=== PATIENT | male | born 1945 | race Caucasian/White ===

== ENCOUNTER → 2018-06-29 | Outpatient (CLI) | payer OTHER ==
--- NOTE | 2018-06-29 14:52 | KCIC ---
MRI of the lumbar spine without contrast 06/29/2018 CLINICAL HISTORY: Low back pain which radiates down the right leg. TECHNIQUE: Unenhanced T1-weighted and T2-weighted sagittal and axial and inversion recovery sagittal images of the lumbar spine were obtained. FINDINGS: Minimal S-shaped curvature of the thoracolumbar spine is seen. Degenerative signal changes are seen involving all of the disks of the lumbar spine. Degenerative signal changes are seen within the marrow surrounding these discs. Hemangiomas are seen scattered throughout the lumbar and sacral vertebral bodies. These measure 3 mm to 1.5 cm in size. An old compression fracture of the L1 vertebral body is seen. No retropulsion of bone fragments into the central spinal canal is seen. No acute compression fracture of the lumbar vertebrae seen. At the L1-2 disc space there is a mild generalized disc bulge. Degenerative changes are seen involving the facet joints bilaterally. These findings do not result in significant central spinal canal or neural foraminal stenosis. At the L2-3 disc space there is a moderate generalized disc bulge. Superimposed on this disc bulge is a central/right paracentral focal disc protrusion. This measures 4 mm in AP diameter. Degenerative changes are seen involving the facet joints bilaterally. There is moderate ligamentum flavum hypertrophy bilaterally. There are small facet joint effusions. These findings when combined result in moderate central spinal canal stenosis. Mild bilateral neural foraminal stenosis is seen. At the L3-4 disc space there is a moderate generalized disc bulge. Superimposed on this disc bulge is a left paracentral focal disc herniation. This measures 7 mm in AP diameter. Degenerative changes are seen involving the facet joints bilaterally. There is moderate ligamentum flavum hypertrophy bilaterally. Small facet joint effusions are seen. There is prominence of the posterior epidural fat. These findings when combined result in moderate to severe left greater than right central spinal canal stenosis. Mild bilateral neural foraminal stenosis is seen. At the L4-5 disc space there is a moderate generalized disc bulge. Superimposed on this disc bulge is a central/right paracentral focal disc protrusion. This measures 4 mm in AP diameter. Degenerative changes are seen involving the facet joints bilaterally. There is moderate ligamentum flavum hypertrophy bilaterally. There is prominence of the posterior epidural fat. Small facet joint effusions are seen. These findings when combined result in moderate to severe right greater than left central spinal canal stenosis. No neural foraminal stenosis is seen. At the L5-S1 disc space there is a mild generalized disc bulge. Degenerative changes are seen involving the facet joints bilaterally. These findings do not result in significant central spinal canal or neural foraminal stenosis. IMPRESSION: The changes of degenerative disc disease are seen involving the lumbar spine. These findings result in moderate central spinal canal stenosis at L2-3, moderate to severe left greater than right central spinal canal stenosis at L3-4 and moderate to severe right greater than left central spinal canal stenosis at L4-5. Mild bilateral neural foraminal stenosis is seen at L3-4. Electronically signed by: Peter Roland MD (06/29/2018 2:49 PM) [facility]-[id number]
== END | disposition home or self-care (01) ==
LOC: KCIC MRI 12:56
PROVIDERS: ATTEND Family Medicine
DX: M51.36 Other intervertebral disc degeneration, lumbar region (principal); M48.061 Spinal stenosis, lumbar region without neurogenic claudication; M51.26 Other intervertebral disc displacement, lumbar region
CPT/HCPCS: 72148

== ENCOUNTER → 2021-03-25 | Outpatient (CLI) | payer MEDICARE, OTHER ==
--- NOTE | 2021-03-25 14:17 | KCIC ---
MRI of the brain without contrast 03/25/2021 Clinical History: Bilateral upper extremity tremor. Technique: Unenhanced T1-weighted sagittal and axial, T2-weighted axial and coronal and FLAIR, suscep tibility weighted and diffusion-weighted axial images of the brain were obtained. Findings: There is generalized parenchymal atrophy. Patchy, confluent and multiple small focal areas of abnormally increased signal intensity are seen within the periventricular and subcortical white ma tter of both cerebral hemispheres on the FLAIR and T2-weighted images consistent most likely with are as of relatively mild small vessel ischemic disease. No acute parenchymal abnormality is seen. No ext ra-axial fluid collection is noted. There is no MRI evidence of acute ischemia/infarction. Mild mucosal thickening is seen scattered throughout the paranasal sinuses. There are small bilateral mastoid effusions. Normal flow voids are seen within the major vascular structures surrounding the b rain parenchyma. IMPRESSION: No acute parenchymal abnormality is seen. Electronically signed by: Peter Roland MD (03/25/2021 2:14 PM) [id number]
== END ==
LOC: KCIC MRI 10:59
PROVIDERS: ATTEND Nurse Practitioner Family
DX: G20 Parkinson's disease (principal)
CPT/HCPCS: 70551

== ENCOUNTER → 2021-10-22 | Day surgery (SDC) | payer MEDICARE ==
[~2021-10-22] VITALS: Ht 190.5 cm; Wt 129.5 kg
[~2021-10-22] MED LIST: ASCO100T4 PO; ASPI-630 PO; CARB1TAB22 PO; CYAN25008 PO; FURO20TA3 PO; IV RINGERS,LACTATED 1000ML 1,000 ML IV ONE; METF10007 PO; POTA10TA12 PO; PROPOFOL 10 MG/ML (20ML) VIAL. IV ONE
[2021-10-22 06:28] VITALS: BP 111/67
[2021-10-22 07:56] VITALS: BP 104/60
--- NOTE | 2021-10-22 11:38 | HP ---
DATE OF SERVICE: 10/22/2021 ADMIT DATE: 10/22/2021 REASON FOR ADMISSION: Anemia. HISTORY OF PRESENT ILLNESS: A 76-year-old male with past medical history significant for GERD, history of diabetes, arthritis, hypertension, Parkinson's disease, is seen for anemia with the hemoglobin 11.4. Occasional constipation is noted. Weight and appetite are stable. He did have a colonoscopy 20 years previously, which was unrevealing. No visible bleeding is noted. There is no upper tract symptoms and is here for interval colonoscopy. PAST MEDICAL HISTORY: Anemia, GERD, diabetes, hypertension, Parkinson's disease. ALLERGIES: CODEINE. MEDICATIONS: Include vitamin C, aspirin, carbidopa/levodopa, vitamin B12, furosemide, metformin, potassium chloride. FAMILY HISTORY: Significant for breast cancer with his mother, [place] with his father and brother. SOCIAL HISTORY: He is a nondrinker, nonsmoker. PAST SURGICAL HISTORY: Joint replacement, vasectomy. REVIEW OF SYSTEMS: Per records. PHYSICAL EXAMINATION: GENERAL: Reveals a well-nourished, well-developed male who is alert and cooperative, in no acute distress. VITAL SIGNS: Temperature 97.6, pulse 72, respiratory rate 18. LUNGS: Clear. CARDIOVASCULAR: Reveals an S1, S2, without S3, S4 or appreciable murmur. ABDOMEN: Reveals a soft abdomen, normal bowel sounds, without appreciable hepatosplenomegaly. EXTREMITIES: Reveals no cyanosis, clubbing or edema. IMPRESSION: Anemia, etiology is to be determined. Colonic polyps, AVMs, cancer, IBD, differential; therefore, recommend a colonoscopy. Risks and benefits have been previously discussed. The patient is willing to proceed at this time. RENAE DR: Dejuan TID: [id number]
== END | disposition home or self-care (01) ==
LOC: ENDOS 06:00
PROVIDERS: ATTEND Internal Medicine Gastroenterology
DX: D50.9 Iron deficiency anemia, unspecified (principal); K64.0 First degree hemorrhoids; K57.30 Diverticulosis of large intestine without perforation or abscess without bleeding; K63.89 Other specified diseases of intestine; K21.9 Gastro-esophageal reflux disease without esophagitis; I10 Essential (primary) hypertension; E11.9 Type 2 diabetes mellitus without complications; J45.909 Unspecified asthma, uncomplicated; M19.90 Unspecified osteoarthritis, unspecified site; Z79.82 Long term (current) use of aspirin; Z79.84 Long term (current) use of oral hypoglycemic drugs; Z79.899 Other long term (current) drug therapy; Z86.010 Personal history of colon polyps; Z98.890 Other specified postprocedural states; Z82.49 Family history of ischemic heart disease and other diseases of the circulatory system; Z80.3 Family history of malignant neoplasm of breast; Z88.5 Allergy status to narcotic agent
CPT/HCPCS: 45378; J2704

== ENCOUNTER 2022-03-27 12:16 | Inpatient (IN) | payer MEDICARE ==
[~2022-03-27] VITALS: Ht 190.5 cm; Wt 112.8 kg
[~2022-03-27 12:16] MED LIST changes: -IV RINGERS,LACTATED 1000ML 1,000 ML IV ONE; -PROPOFOL 10 MG/ML (20ML) VIAL. IV ONE
[2022-03-27] MEDS ORDERED: ASPIRIN 325 MG TABLET PO ONE (13:00)
[2022-03-27 13:11] LABS: BASO # 0.1 x10^3/uL (0.0-0.2); BASO % 1 % (0-3); EOS # 0.1 x10^3/uL (0.0-0.7); EOS % 1 % (0-3); HEMATOCRIT 27.7 % (39.0-53.0); HEMOGLOBIN 9.2 g/dL (13.0-17.5); LYMPH # 1.5 x10^3/uL (1.0-4.8); LYMPH % 13 % (24-48); MEAN CORPUSCULAR HEMOGLOBIN 31 pg (25-35); MEAN CORPUSCULAR HGB CONC 33 g/dL (31-37); MEAN CORPUSCULAR VOLUME 94 fL (79-100); MONO # 0.9 x10^3/uL (0.0-1.1); MONO % 8 % (0-9); NEUT # 9.1 x10^3/uL (1.8-7.7); NEUT % 78 % (31-73); PLATELET COUNT 274 x10^3/uL (140-400); RED BLOOD COUNT 2.95 x10^6/uL (4.30-5.70); RED CELL DISTRIBUTION WIDTH 18.2 % (11.5-14.5); WHITE BLOOD COUNT 11.6 x10^3/uL (4.0-11.0)
--- NOTE | 2022-03-27 13:17 | RAD ---
EXAM: Chest, single view. HISTORY: Short of breath. COMPARISON: 02/17/2006. FINDINGS: A frontal view of the chest is obtained. There is stable right hilar prominence. There is d iffuse increased interstitial opacity. There is no consolidation, pleural effusion or pneumothorax. T he heart is normal in size. IMPRESSION: 1. Stable right hilar prominence likely due to prominent pulmonary vascular shadows. 2. Stable chronic appearing diffuse increased interstitial opacity. No consolidated infiltrate is see n. Electronically signed by: Brenda Roberts MD (03/27/2022 1:14 PM) [id number]
[2022-03-27 13:25] LABS: ANION GAP 17 (6-14); BLOOD UREA NITROGEN 47 mg/dL (8-26); BUN/CREATININE RATIO 13 (6-20); CALCIUM 9.4 mg/dL (8.5-10.1); CARBON DIOXIDE 18 mmol/L (21-32); CHLORIDE 106 mmol/L (98-107); CREATININE 3.7 mg/dL (0.7-1.3); GFR 16.1; GLUCOSE 133 mg/dL (70-99); POTASSIUM 4.4 mmol/L (3.5-5.1); SODIUM 141 mmol/L (136-145)
[2022-03-27 13:30] LABS: ALBUMIN 3.3 g/dL (3.4-5.0); ALBUMIN/GLOBULIN RATIO 0.7 (1.0-1.7); ALK PHOS 99 U/L (46-116); ALT (SGPT) < 6 U/L (16-63); AST (SGOT) 13 U/L (15-37); LIPASE 377 U/L (73-393); MAGNESIUM 2.1 mg/dL (1.8-2.4); TOTAL BILIRUBIN 0.5 mg/dL (0.2-1.0)
[2022-03-27 14:28] LABS: BACTERIA,URINE MOD /HPF (0-FEW); RBC,URINE 0 /HPF (0-2); WBC,URINE TNTC /HPF (0-4)
[2022-03-27] MEDS: cefTRIAXone IV Push 1 GM VIAL. IVP SCH (14:54)
--- NOTE | 2022-03-27 14:55 | RAD ---
EXAMINATION: CT ABDOMEN+PELVIS WO. Technique: Axial images with coronal and sagittal reconstructions are performed of abdomen and pelvis without contrast. One or more of the following radiation dose reduction techniques was used: automated exposure control , adjustment of mA and/or KV according to patient size, and/or utilization of iterative reconstructio n technique. HISTORY: 76 years Male urinary retention. COMPARISON: None. FINDINGS: There is a minimal atelectasis or scarring in the periphery of the lung bases. The liver, pancreas and the the adrenal glands appear unremarkable. There is a fluid level in the gal lbladder with the high density may relate to prior contrast administration. The gallbladder is slight ly distended with no gallbladder wall thickening. No obvious stone. There is suggestion of the stent near the martha hepatis possibly within the hepatic artery. The spleen is not enlarged. There are calc ified granulomas seen. The kidneys demonstrate bilateral moderate to severe hydronephrosis worse on the left side. There is dilatation of the urinary bladder was significant the irregular wall thickening seen, worse anteriorl y. There is a Leyva's catheter in place. Nonobstructive the stone measuring 9 mm seen in the lower po le of the right kidney. The abdominal aorta is normal in caliber. No para-aortic significant enlarged lymph node is seen. The re is no bowel obstruction. The appendix is normal. There is a moderate amounts of fecal material is seen in the colon and rectum. There is a small fat-containing umbilical hernia. The osseous structures demonstrate the likely chronic 50 percent compression fracture of the L1 verte bral body. There is associated prominent degenerative changes in the lumbar spine. IMPRESSION: Abnormal significant thickening of the urinary bladder wall could relate to severe cystitis or underl carolina neoplasm. This is associated with mild dilatation of the urinary bladder despite presence of a F oley's catheter. There is bilateral hydroureteronephrosis as well. Urology evaluation is recommended. Electronically signed by: Alphonse Davis MD (03/27/2022 2:53 PM) [id number]
--- NOTE | 2022-03-27 15:03 | PHYS DOC ---
Past Medical History Past Surgical History: No Surgical History Smoking Status: Never Smoker Alcohol Use: None General Adult EDM: Chief Complaint: ABNORMAL LABS HPI: HPI: Patient is a 76 year old male who presents with acute renal failure, patient was sent in by primary care physician. Patient states that he does not feel well, he feels fatigued, he feels slightly short of breath as well. He states he is never felt like this before. He states he has felt this way for about 6 months now. When questioned further, he has not been able to urinate very well, he states that he urinates very little but he goes very frequently. He does not take medication for this. Otherwise patient does not have any other complaints. Review of Systems: Review of Systems: Constitutional: Denies fever or chills. [] Eyes: Denies change in visual acuity. [] HENT: Denies nasal congestion or sore throat. [] Respiratory: Denies cough, positive shortness of breath. [] Cardiovascular: Denies chest pain or edema. [] GI: Denies abdominal pain, nausea, vomiting, bloody stools or diarrhea. [] : Denies dysuria. [] Musculoskeletal: Denies back pain or joint pain. [] Integument: Denies rash. [] Neurologic: Denies headache, focal weakness or sensory changes. [] Endocrine: + polyuria no polydipsia. [] Lymphatic: Denies swollen glands. [] Psychiatric: Denies depression or anxiety. [] Heart Score: C/O Chest Pain: No Risk Factors: Risk Factors: DM, Current or recent (<one month) smoker, HTN, HLP, family history of CAD, obesity. Risk Scores: Score 0 - 3: 2.5% MACE over next 6 weeks - Discharge Home Score 4 - 6: 20.3% MACE over next 6 weeks - Admit for Clinical Observation Score 7 - 10: 72.7% MACE over next 6 weeks - Early Invasive Strategies Current Medications: Current Medications Medications (Trade) Dose Ordered Sig/Victor Hugo Start Time Stop Time Status Last Admin Dose Admin Aspirin (Aspirin Chewable) 81 mg DAILY 03/28/22 09:00 Aspirin (Prudencio Aspirin) 325 mg 1X ONCE 03/27/22 13:00 03/27/22 13:04 DC 03/27/22 13:22 325 MG Carbidopa/Levodopa (Sinemet 25/100) 2 tab BID 03/27/22 21:00 UNV Ceftriaxone Sodium (Rocephin) 1 gm Q24H 03/27/22 15:00 Furosemide (Lasix) 20 mg DAILY 03/28/22 09:00 Non-Formulary Medication (Ascorbic Acid (Vitamin C)) 1 tab DAILY 03/28/22 09:00 UNV Non-Formulary Medication (Cyanocobalamin (Vitamin B-12) (Vitamin B12)) 1 tab DAILY 03/28/22 09:00 UNV Non-Formulary Medication (Metformin Hcl ) 1,000 mg [id number] 03/28/22 08:00 UNV Potassium Chloride (Klor-Con) 10 meq DAILY 03/28/22 09:00 UNV Allergies: Allergies: Allergies Coded Allergies Type Severity Reaction Last Updated Verified codeine Allergy Severe Nausea 03/27/22 Yes Physical Exam: PE: Constitutional: Well developed, well nourished, no acute distress, non-toxic appearance. [] HENT: Normocephalic, atraumatic, bilateral external ears normal, oropharynx moist, no oral exudates, nose normal. [] Eyes: PERRLA, EOMI, conjunctiva normal, no discharge. [] Neck: Normal range of motion, no tenderness, supple, no stridor. [] Cardiovascular:Heart rate regular rhythm, no murmur [] Lungs & Thorax: Bilateral breath sounds clear to auscultation [] Abdomen: Bowel sounds normal, soft, mild suprapubic tenderness, no masses, no pulsatile masses. [] Skin: Warm, dry, no erythema, no rash. [] Back: No tenderness, no CVA tenderness. [] Extremities: No tenderness, no cyanosis, no clubbing, ROM intact, no edema. [] Neurologic: Alert and oriented X 3, normal motor function, normal sensory function, no focal deficits noted. [] Psychologic: Affect normal, judgement normal, mood normal. [] Current Patient Data: Labs: Laboratory Tests Test 03/27/22 12:50 03/27/22 14:05 White Blood Count 11.6 x10^3/uL (4.0-11.0) H Red Blood Count 2.95 x10^6/uL (4.30-5.70) L Hemoglobin 9.2 g/dL (13.0-17.5) L Hematocrit 27.7 % (39.0-53.0) L Mean Corpuscular Volume 94 fL (79-100) Mean Corpuscular Hemoglobin 31 pg (25-35) Mean Corpuscular Hemoglobin Concent 33 g/dL (31-37) Red Cell Distribution Width 18.2 % (11.5-14.5) H Platelet Count 274 x10^3/uL (140-400) Neutrophils (%) (Auto) 78 % (31-73) H Lymphocytes (%) (Auto) 13 % (24-48) L Monocytes (%) (Auto) 8 % (0-9) Eosinophils (%) (Auto) 1 % (0-3) Basophils (%) (Auto) 1 % (0-3) Neutrophils # (Auto) 9.1 x10^3/uL (1.8-7.7) H Lymphocytes # (Auto) 1.5 x10^3/uL (1.0-4.8) Monocytes # (Auto) 0.9 x10^3/uL (0.0-1.1) Eosinophils # (Auto) 0.1 x10^3/uL (0.0-0.7) Basophils # (Auto) 0.1 x10^3/uL (0.0-0.2) Sodium Level 141 mmol/L (136-145) Potassium Level 4.4 mmol/L (3.5-5.1) Chloride Level 106 mmol/L (98-107) Carbon Dioxide Level 18 mmol/L (21-32) L Anion Gap 17 (6-14) H Blood Urea Nitrogen 47 mg/dL (8-26) H Creatinine 3.7 mg/dL (0.7-1.3) H Estimated GFR (Cockcroft-Gault) 16.1 BUN/Creatinine Ratio 13 (6-20) Glucose Level 133 mg/dL (70-99) H Calcium Level 9.4 mg/dL (8.5-10.1) Magnesium Level 2.1 mg/dL (1.8-2.4) Total Bilirubin 0.5 mg/dL (0.2-1.0) Aspartate Amino Transferase (AST) 13 U/L (15-37) L Alanine Aminotransferase (ALT) < 6 U/L (16-63) L Alkaline Phosphatase 99 U/L (46-116) Troponin I High Sensitivity 10 ng/L (4-75) Total Protein 8.0 g/dL (6.4-8.2) Albumin 3.3 g/dL (3.4-5.0) L Albumin/Globulin Ratio 0.7 (1.0-1.7) L Lipase 377 U/L (73-393) Thyroid Stimulating Hormone (TSH) 1.199 uIU/mL (0.358-3.74) Urine Collection Type Unknown Urine Color (Auto) Light orange Urine Turbidity Turbid Urine pH (Auto) 5.5 (<5.0-8.0) Urine Specific [place] 1.009 (1.000-1.030) Urine Protein (Auto) 50 mg/dL (Negative) Urine Glucose (Auto)(UA) Negative mg/dL (Negative) Urine Ketones (Auto) Negative mg/dL (Negative) Urine Blood (Auto) Moderate (Negative) Urine Nitrite (Auto) Negative (Negative) Urine Bilirubin (Auto) Negative (Negative) Urine Urobilinogen (Auto) Normal mg/dL (Normal) Urine Leukocyte Esterase (Auto) Large (Negative) Urine RBC 0 /HPF (0-2) Urine WBC Tntc /HPF (0-4) Urine Bacteria Mod /HPF (0-FEW) Laboratory Tests 03/27/22 12:50 Laboratory Tests 03/27/22 12:50 Vital Signs: Vital Signs Date Time Temp Pulse Resp B/P (MAP) Pulse Ox O2 Delivery O2 Flow Rate FiO2 03/27/22 12:35 98.2 73 16 102/64 (77) 96 Room Air 98.2 EKG: EKG: Normal sinus rhythm, right bundle branch block, RVH Radiology/Procedures: Radiology/Procedures: [] Leyva placed with 4200 mL output Impression: PATIENT: PAOLA ROMERO ACCOUNT: [id number] : 1945 LOCATION: ER AGE: 76 SEX: M EXAM STATUS: REG ER ORD. PHYSICIAN: MILAGRO DUQUE MD REASON: urinary retention PROCEDURE: CT ABDOMEN PELVIS WO CONTRAST EXAMINATION: CT ABDOMEN+PELVIS WO. Technique: Axial images with coronal and sagittal reconstructions are performed of abdomen and pelvis without contrast. One or more of the following radiation dose reduction techniques was used: automated exposure control, adjustment of mA and/or KV according to patient size, and/or utilization of iterative reconstruction technique. HISTORY: 76 years Male urinary retention. COMPARISON: None. FINDINGS: There is a minimal atelectasis or scarring in the periphery of the lung bases. The liver, pancreas and the the adrenal glands appear unremarkable. There is a fluid level in the gallbladder with the high density may relate to prior contrast administration. The gallbladder is slightly distended with no g allbladder wall thickening. No obvious stone. There is suggestion of the stent near the martha hepatis possibly within the hepatic artery. The spleen is not enlarged. There are calcified granulomas seen. The kidneys demonstrate bilateral moderate to severe hydronephrosis worse on the left side. There is dilatation of the urinary bladder was significant the irregular wall thickening seen, worse anteriorly. There is a Leyva's catheter in place. Nonobstructive the stone measuring 9 mm seen in the lower pole of the right kidney. The abdominal aorta is normal in caliber. No para-aortic significant enlarged lymph node is seen. There is no bowel obstruction. The appendix is normal. There is a moderate amounts of fecal material is seen in the colon and rectum. There is a small fat-containing umbilical hernia. The osseous structures demonstrate the likely chronic 50 percent compression fracture of the L1 vertebral body. There is associated prominent degenerative changes in the lumbar spine. IMPRESSION: Abnormal significant thickening of the urinary bladder wall could relate to severe cystitis or underlying neoplasm. This is associated with mild dilatation of the urinary bladder despite presence of a Leyva's catheter. There is bilateral hydroureteronephrosis as well. Urology evaluation is recommended. Electronically signed by: Alphonse Davis MD (03/27/2022 2:53 PM) [id number] Course & Med Decision Making: Course & Med Decision Making Pertinent Labs and Imaging studies reviewed. (See chart for details) 76-year-old male seen and examined by myself, sent in for acute renal failure. Likely secondary to acute urinary retention secondary to prostatic hypertrophy. Patient with GFR of 16 here, leukocytosis, urinalysis with possible UTI. Patient with acute renal failure with acute urinary retention, postobstructive uropathy. Patient admitted to the service of Dr. Butler who accepts the patient. Urology consult is recommended. Samm Disclaimer: Samm Disclaimer: This electronic medical record was generated, in whole or in part, using a voice recognition dictation system. Departure Departure Referrals: THELMA SEGURA MD (PCP) MILAGRO DUQUE MD March 27, 2022 15:03
--- NOTE | 2022-03-27 15:34 | HP ---
DATE OF SERVICE: 03/27/2022 ADMIT DATE: 03/27/2022 CHIEF COMPLAINT: Abdominal pain, dysuria. HISTORY OF PRESENT ILLNESS: The patient is a pleasant 76-year-old male who presented with the above chief complaints. We did a straight cath and got out 2 liters of urine. It appears he probably has a prostatic issues. He has got obstructive uropathy. His BUN is 47, creatinine 3.7. We are going to admit the patient and consult Urology and Nephrology. PAST MEDICAL HISTORY: Probable BPH. He states he saw a urologist in the past, does not remember their names; edema; diabetes. ALLERGIES: CODEINE. FAMILY HISTORY: Diabetes. SOCIAL HISTORY: Does not drink, smoke or take drugs. He is . MEDICATIONS: Reviewed. He is on aspirin, Sinemet, Klor-Con, Lasix, metformin, B12 and vitamin C. REVIEW OF SYSTEMS: GENERAL: No history of weight change, weakness or fevers. SKIN: No bruising, hair changes or rashes. EYES: No blurred, double or loss of vision. NOSE AND THROAT: No history of nosebleeds, hoarseness or sore throat. HEART: No history of palpitations, chest pain or shortness of breath on exertion. LUNGS: Denies cough, hemoptysis, wheezing or shortness of breath. GASTROINTESTINAL: He complains abdominal pain. GENITOURINARY: He complains of dysuria and difficulty voiding. NEUROLOGIC: Denies history of numbness, tingling, tremor or weakness. PSYCHIATRIC: No history of panic, anxiety or depression. ENDOCRINE: No history of heat or cold intolerance, polyuria or polydipsia. EXTREMITIES: Denies muscle weakness, joint pain, pain on walking or stiffness. PHYSICAL EXAMINATION: VITALS: Within normal limits and are stable. GENERAL: No apparent distress. Alert and oriented. HEENT: Normal cephalic atraumatic, external auditory canals are patent EYES: Extraocular muscles are intact, pupils are equally round and reactive to light and accommodation MUSKULOSKELETAL: Well developed, well nourished, good range of motion ENDOCRINE: No thyromegaly was palpated LYMPHATICS: No cervical chain or axillary nodes were noted HEMATOPOIETIC: No bruising NECK: Supple, no JVD, no thyromegaly was noted. LUNGS: Clear to auscultation in all lung [place] without rhonchi or wheezing. HEART: RRR, S1, S2 present. Peripheral pulses intact, no obvious murmurs were noted. ABDOMEN: Soft, nontender. Positive bowel sounds no organomegaly, normal bowel sounds. EXTREMITIES: Without any cyanosis, clubbing, or edema. Pedal pulses intact, Homans sign is negative. NEUROLOGIC: Normal speech, normal tone. A and O x 3, moves all extremities, no obvious focal deficits. PSYCHIATRIC: Normal affect, normal mood. Stable. SKIN: No ulcerations or rashes, good skin turgor, no jaundice. VASCULAR: Good capillary refill, neurovascular bundle appears to be intact. LABORATORY DATA: BUN is 47, creatinine 3.7. Glucose is 133. White count 11.6, hemoglobin 9.2, platelets 274. Urinalysis, moderate blood, large amount of leukocyte esterase, too numerous to count white cells. ASSESSMENT AND PLAN: Obstructive uropathy leukocytosis, urinary tract infection, probable BPH, azotemia, renal failure. The patient will be admitted. We will keep the Leyva to bedside drainage. Consult Urology, consult Nephrology. IV antibiotics, home meds, DVT prophylaxis, full code. JUNO/DEMETRIA DR: JUNO/cale TID: [id number]
[2022-03-27 16:58] VITALS: BP 134/81
[2022-03-27] MEDS ORDERED: MULT-245 PO (17:33)
[2022-03-27] MEDS: IV NORMAL SALINE 1000ML BAG 1,000 ML IV SCH (18:00)
[2022-03-27 19:00] VITALS: BP 119/78
[2022-03-27] MEDS: CARBIDOPA/LEVODOPA 25/100MG TABLET PO SCH (21:31)
[2022-03-27 23:00] VITALS: BP 110/65
[2022-03-28 02:58] LABS: ALBUMIN 2.8 g/dL (3.4-5.0); ALBUMIN/GLOBULIN RATIO 0.7 (1.0-1.7); ALK PHOS 85 U/L (46-116); ANION GAP 11 (6-14); AST (SGOT) 11 U/L (15-37); BLOOD UREA NITROGEN 44 mg/dL (8-26); BUN/CREATININE RATIO 15 (6-20); CALCIUM 8.6 mg/dL (8.5-10.1); CARBON DIOXIDE 22 mmol/L (21-32); CHLORIDE 109 mmol/L (98-107); CREATININE 2.9 mg/dL (0.7-1.3); GFR 21.4; GLUCOSE 106 mg/dL (70-99); PHOSPHORUS 4.2 mg/dL (2.6-4.7); POTASSIUM 4.6 mmol/L (3.5-5.1); SODIUM 142 mmol/L (136-145); TOTAL BILIRUBIN 0.3 mg/dL (0.2-1.0); TOTAL PROTEIN 6.7 g/dL (6.4-8.2)
[2022-03-28 03:00] VITALS: BP 113/72
[2022-03-28 03:05] LABS: ALT (SGPT) < 6 U/L (16-63)
[2022-03-28] MEDS: IV NORMAL SALINE 1000ML BAG 1,000 ML IV SCH ×2 (04:01→14:00)
[2022-03-28 07:00] VITALS: BP 131/71
[2022-03-28] MEDS ORDERED: FUROSEMIDE 20 MG TABLET PO SCH (09:00)
[2022-03-28] MEDS ORDERED: POTASSIUM CHLORIDE 10 MEQ TABLET.ER. PO SCH (09:00)
[2022-03-28] MEDS ORDERED: CYANOCOBALAMIN (VITAMIN B-12) 1,000 MCG TABLET. PO SCH (09:00)
[2022-03-28] MEDS ORDERED: ASCORBIC ACID 500 MG TABLET PO SCH (09:00)
[2022-03-28] MEDS: ASPIRIN CHEWABLE 81 MG TABLET. PO SCH (09:13)
[2022-03-28] MEDS: CARBIDOPA/LEVODOPA 25/100MG TABLET PO SCH ×2 (09:16→20:32)
--- NOTE | 2022-03-28 10:44 | PDOC2 ---
CONSULT Date of Consult Date of Consult DATE: 03/28/22 TIME: 10:38 Reason for Consult Reason for Consult: XAVIER Referring Physician Referring Physician: CASTLE Identification/Chief Complaint Chief Complaint SOB AND WEAKNESS Source Source: Chart review, Patient History of Present Illness Reason for Visit: THIS IS A 76 YR OLD WITH WEAKNESS AND SOB. LABS SHOWED CR OF 3.7 BUN OF 47 AND MET ACIDOSIS. STATES HE HAS NOT BEEN ABLE TO URINATE WELL FOR MANY MONTHS. HE IS ALSO ANEMIC. NO KNOWN CKD HX PER PT. BILATERAL HYDRONEPHROSIS AND URINARY RETENTION NOTED. PER NURSING REPORT HE HAD NEARLY 4.2 LITERS OUT UPON INITIAL THOMAS PLACEMENT. UA NOTABLE FOR UTI Past Medical History Endocrine: Diabetes Family History Family History: Diabetes Current Problem List Problem List Problems Medical Problems: (1) Acute renal failure Status: Acute (2) Acute urinary retention Status: Acute Current Medications Current Medications Current Medications Aspirin (Prudencio Aspirin) 325 mg 1X ONCE PO Last administered on 03/27/22at 13:22; Start 03/27/22 at 13:00; Stop 03/27/22 at 13:04; Status DC Aspirin (Aspirin Chewable) 81 mg DAILY PO Last administered on 03/28/22at 09:13; Start 03/28/22 at 09:00 Carbidopa/Levodopa (Sinemet 25/100) 2 tab BID PO Last administered on 03/28/22at 09:16; Start 03/27/22 at 21:00 Furosemide (Lasix) 20 mg DAILY PO ; Start 03/28/22 at 09:00; Stop 03/27/22 at 18:54; Status DC Potassium Chloride (Klor-Con) 10 meq DAILY PO ; Start 03/28/22 at 09:00; Stop 03/27/22 at 18:54; Status DC Ascorbic Acid (Vitamin C) 500 mg DAILY PO Last administered on 03/28/22at 09:16; Start 03/28/22 at 09:00; Stop 03/28/22 at 09:19; Status DC Cyanocobalamin (Vitamin B-12) 2,500 mcg DAILY PO Last administered on 03/28/22at 09:16; Start 03/28/22 at 09:00; Stop 03/28/22 at 09:19; Status DC Non-Formulary Medication (Metformin Hcl ) 1,000 mg DAILYWBKFT PO ; Start 03/28/22 at 08:00; Status UNV Ceftriaxone Sodium (Rocephin) 1 gm Q24H IVP Last administered on 03/27/22at 14:54; Start 03/27/22 at 15:00 Sodium Chloride 1,000 ml @ 100 mls/hr Q10H IV Last administered on 03/28/22at 04:01; Start 03/27/22 at 18:00 Active Scripts Active Reported Multi Vitamin Daily (Multivitamin) 1 Each Tablet 1 Tab PO DAILY 30 Days Metformin Hcl 1,000 Mg Tablet 1,000 Mg PO DAILYWBKFT Klor-Con 10 (Potassium Chloride) 10 Meq Tablet.er 10 Meq PO DAILY Furosemide 20 Mg Tablet 20 Mg PO DAILY Vitamin B12 (Cyanocobalamin (Vitamin B-12)) 2,500 Mcg Tablet 1 Tab PO QMTH 30 Days Vitamin C (Ascorbic Acid) 100 Mg Tablet 1 Tab PO DAILY 30 Days Aspirin 81 Mg Tab.chew 81 Mg PO DAILY Carbidopa-Levodopa 25-100 Tab (Carbidopa/Levodopa) 1 Each Tablet 2 Tab PO BID 30 Days Allergies Allergies: Coded Allergies: codeine (Verified Adverse Reaction, Severe, Nausea, 03/28/22) ROS General: YES: Fatigue, Malaise PSYCHOLOGICAL ROS: YES: Depression Eyes: Yes Decreased vision ALLERGY AND IMMUNOLOGY: YES: Seasonal Allergies Respiratory: YES: Cough Gastrointestinal: Yes Abdominal Pain Genitourinary: YES Frequency Musculoskeletal: Yes Muscular Weakness Neurological: Yes Weakness Skin: Yes Dry Skin Physical Exam General: Alert, Oriented X3, Cooperative, No acute distress HEENT: Atraumatic, PERRLA Lungs: Clear to auscultation Heart: Regular rate Abdomen: Normal bowel sounds, No tenderness, Other (THOMAS IN) Extremities: No clubbing Skin: No rashes, No breakdown Neuro: Normal speech Psych/Mental Status: Mental status NL MUSCULOSKELETAL: No joint tenderness, No deformity, No swelling Vitals VITALS Vital Signs Date Time Temp Pulse Resp B/P (MAP) Pulse Ox O2 Delivery O2 Flow Rate FiO2 03/28/22 07:00 97.7 54 16 131/71 (91) 96 Room Air 97.7 03/27/22 15:00 98.0 Labs Labs Laboratory Tests Test 03/27/22 12:50 03/27/22 14:05 03/27/22 15:48 03/27/22 16:32 White Blood Count 11.6 x10^3/uL (4.0-11.0) Red Blood Count 2.95 x10^6/uL (4.30-5.70) Hemoglobin 9.2 g/dL (13.0-17.5) Hematocrit 27.7 % (39.0-53.0) Mean Corpuscular Volume 94 fL (79-100) Mean Corpuscular Hemoglobin 31 pg (25-35) Mean Corpuscular Hemoglobin Concent 33 g/dL (31-37) Red Cell Distribution Width 18.2 % (11.5-14.5) Platelet Count 274 x10^3/uL (140-400) Neutrophils (%) (Auto) 78 % (31-73) Lymphocytes (%) (Auto) 13 % (24-48) Monocytes (%) (Auto) 8 % (0-9) Eosinophils (%) (Auto) 1 % (0-3) Basophils (%) (Auto) 1 % (0-3) Neutrophils # (Auto) 9.1 x10^3/uL (1.8-7.7) Lymphocytes # (Auto) 1.5 x10^3/uL (1.0-4.8) Monocytes # (Auto) 0.9 x10^3/uL (0.0-1.1) Eosinophils # (Auto) 0.1 x10^3/uL (0.0-0.7) Basophils # (Auto) 0.1 x10^3/uL (0.0-0.2) Sodium Level 141 mmol/L (136-145) Potassium Level 4.4 mmol/L (3.5-5.1) Chloride Level 106 mmol/L (98-107) Carbon Dioxide Level 18 mmol/L (21-32) Anion Gap 17 (6-14) Blood Urea Nitrogen 47 mg/dL (8-26) Creatinine 3.7 mg/dL (0.7-1.3) Estimated GFR (Cockcroft-Gault) 16.1 BUN/Creatinine Ratio 13 (6-20) Glucose Level 133 mg/dL (70-99) Calcium Level 9.4 mg/dL (8.5-10.1) Magnesium Level 2.1 mg/dL (1.8-2.4) Total Bilirubin 0.5 mg/dL (0.2-1.0) Aspartate Amino Transf (AST/SGOT) 13 U/L (15-37) Alanine Aminotransferase (ALT/SGPT) < 6 U/L (16-63) Alkaline Phosphatase 99 U/L (46-116) Troponin I High Sensitivity 10 ng/L (4-75) 9 ng/L (4-75) Total Protein 8.0 g/dL (6.4-8.2) Albumin 3.3 g/dL (3.4-5.0) Albumin/Globulin Ratio 0.7 (1.0-1.7) Lipase 377 U/L (73-393) Thyroid Stimulating Hormone (TSH) 1.199 uIU/mL (0.358-3.74) Urine Collection Type Unknown Urine Color (Auto) Light orange Urine Turbidity Turbid Urine pH (Auto) 5.5 (<5.0-8.0) Urine Specific [place] 1.009 (1.000-1.030) Urine Protein (Auto) 50 mg/dL (Negative) Urine Glucose (Auto)(UA) Negative mg/dL (Negative) Urine Ketones (Auto) Negative mg/dL (Negative) Urine Blood (Auto) Moderate (Negative) Urine Nitrite (Auto) Negative (Negative) Urine Bilirubin (Auto) Negative (Negative) Urine Urobilinogen (Auto) Normal mg/dL (Normal) Urine Leukocyte Esterase (Auto) Large (Negative) Urine RBC 0 /HPF (0-2) Urine WBC Tntc /HPF (0-4) Urine Bacteria Mod /HPF (0-FEW) Glucose (Fingerstick) 100 mg/dL (70-99) Test 03/27/22 21:14 03/28/22 02:00 03/28/22 07:56 Glucose (Fingerstick) 119 mg/dL (70-99) 124 mg/dL (70-99) Sodium Level 142 mmol/L (136-145) Potassium Level 4.6 mmol/L (3.5-5.1) Chloride Level 109 mmol/L (98-107) Carbon Dioxide Level 22 mmol/L (21-32) Anion Gap 11 (6-14) Blood Urea Nitrogen 44 mg/dL (8-26) Creatinine 2.9 mg/dL (0.7-1.3) Estimated GFR (Cockcroft-Gault) 21.4 BUN/Creatinine Ratio 15 (6-20) Glucose Level 106 mg/dL (70-99) Calcium Level 8.6 mg/dL (8.5-10.1) Phosphorus Level 4.2 mg/dL (2.6-4.7) Magnesium Level 2.0 mg/dL (1.8-2.4) Total Bilirubin 0.3 mg/dL (0.2-1.0) Aspartate Amino Transf (AST/SGOT) 11 U/L (15-37) Alanine Aminotransferase (ALT/SGPT) < 6 U/L (16-63) Alkaline Phosphatase 85 U/L (46-116) Troponin I High Sensitivity 11 ng/L (4-75) Total Protein 6.7 g/dL (6.4-8.2) Albumin 2.8 g/dL (3.4-5.0) Albumin/Globulin Ratio 0.7 (1.0-1.7) Laboratory Tests Test 03/27/22 12:50 03/27/22 14:05 03/27/22 15:48 03/27/22 16:32 White Blood Count 11.6 x10^3/uL (4.0-11.0) Red Blood Count 2.95 x10^6/uL (4.30-5.70) Hemoglobin 9.2 g/dL (13.0-17.5) Hematocrit 27.7 % (39.0-53.0) Mean Corpuscular Volume 94 fL (79-100) Mean Corpuscular Hemoglobin 31 pg (25-35) Mean Corpuscular Hemoglobin Concent 33 g/dL (31-37) Red Cell Distribution Width 18.2 % (11.5-14.5) Platelet Count 274 x10^3/uL (140-400) Neutrophils (%) (Auto) 78 % (31-73) Lymphocytes (%) (Auto) 13 % (24-48) Monocytes (%) (Auto) 8 % (0-9) Eosinophils (%) (Auto) 1 % (0-3) Basophils (%) (Auto) 1 % (0-3) Neutrophils # (Auto) 9.1 x10^3/uL (1.8-7.7) Lymphocytes # (Auto) 1.5 x10^3/uL (1.0-4.8) Monocytes # (Auto) 0.9 x10^3/uL (0.0-1.1) Eosinophils # (Auto) 0.1 x10^3/uL (0.0-0.7) Basophils # (Auto) 0.1 x10^3/uL (0.0-0.2) Sodium Level 141 mmol/L (136-145) Potassium Level 4.4 mmol/L (3.5-5.1) Chloride Level 106 mmol/L (98-107) Carbon Dioxide Level 18 mmol/L (21-32) Anion Gap 17 (6-14) Blood Urea Nitrogen 47 mg/dL (8-26) Creatinine 3.7 mg/dL (0.7-1.3) Estimated GFR (Cockcroft-Gault) 16.1 BUN/Creatinine Ratio 13 (6-20) Glucose Level 133 mg/dL (70-99) Calcium Level 9.4 mg/dL (8.5-10.1) Magnesium Level 2.1 mg/dL (1.8-2.4) Total Bilirubin 0.5 mg/dL (0.2-1.0) Aspartate Amino Transf (AST/SGOT) 13 U/L (15-37) Alanine Aminotransferase (ALT/SGPT) < 6 U/L (16-63) Alkaline Phosphatase 99 U/L (46-116) Troponin I High Sensitivity 10 ng/L (4-75) 9 ng/L (4-75) Total Protein 8.0 g/dL (6.4-8.2) Albumin 3.3 g/dL (3.4-5.0) Albumin/Globulin Ratio 0.7 (1.0-1.7) Lipase 377 U/L (73-393) Thyroid Stimulating Hormone (TSH) 1.199 uIU/mL (0.358-3.74) Urine Collection Type Unknown Urine Color (Auto) Light orange Urine Turbidity Turbid Urine pH (Auto) 5.5 (<5.0-8.0) Urine Specific [place] 1.009 (1.000-1.030) Urine Protein (Auto) 50 mg/dL (Negative) Urine Glucose (Auto)(UA) Negative mg/dL (Negative) Urine Ketones (Auto) Negative mg/dL (Negative) Urine Blood (Auto) Moderate (Negative) Urine Nitrite (Auto) Negative (Negative) Urine Bilirubin (Auto) Negative (Negative) Urine Urobilinogen (Auto) Normal mg/dL (Normal) Urine Leukocyte Esterase (Auto) Large (Negative) Urine RBC 0 /HPF (0-2) Urine WBC Tntc /HPF (0-4) Urine Bacteria Mod /HPF (0-FEW) Glucose (Fingerstick) 100 mg/dL (70-99) Test 03/27/22 21:14 03/28/22 02:00 03/28/22 07:56 Glucose (Fingerstick) 119 mg/dL (70-99) 124 mg/dL (70-99) Sodium Level 142 mmol/L (136-145) Potassium Level 4.6 mmol/L (3.5-5.1) Chloride Level 109 mmol/L (98-107) Carbon Dioxide Level 22 mmol/L (21-32) Anion Gap 11 (6-14) Blood Urea Nitrogen 44 mg/dL (8-26) Creatinine 2.9 mg/dL (0.7-1.3) Estimated GFR (Cockcroft-Gault) 21.4 BUN/Creatinine Ratio 15 (6-20) Glucose Level 106 mg/dL (70-99) Calcium Level 8.6 mg/dL (8.5-10.1) Phosphorus Level 4.2 mg/dL (2.6-4.7) Magnesium Level 2.0 mg/dL (1.8-2.4) Total Bilirubin 0.3 mg/dL (0.2-1.0) Aspartate Amino Transf (AST/SGOT) 11 U/L (15-37) Alanine Aminotransferase (ALT/SGPT) < 6 U/L (16-63) Alkaline Phosphatase 85 U/L (46-116) Troponin I High Sensitivity 11 ng/L (4-75) Total Protein 6.7 g/dL (6.4-8.2) Albumin 2.8 g/dL (3.4-5.0) Albumin/Globulin Ratio 0.7 (1.0-1.7) Images Images PATIENT: PAOLA ROMERO ACCOUNT: [id number] : 1945 LOCATION: ER AGE: 76 SEX: M EXAM STATUS: REG ER ORD. PHYSICIAN: MILAGRO DUQUE MD REASON: urinary retention PROCEDURE: CT ABDOMEN PELVIS WO CONTRAST EXAMINATION: CT ABDOMEN+PELVIS WO. Technique: Axial images with coronal and sagittal reconstructions are performed of abdomen and pelvis without contrast. One or more of the following radiation dose reduction techniques was used: automated exposure control, adjustment of mA and/or KV according to patient size, and/or utilization of iterative reconstruction technique. HISTORY: 76 years Male urinary retention. COMPARISON: None. FINDINGS: There is a minimal atelectasis or scarring in the periphery of the lung bases. The liver, pancreas and the the adrenal glands appear unremarkable. There is a fluid level in the gallbladder with the high density may relate to prior contrast administration. The gallbladder is slightly distended with no gallbladder wall thickening. No obvious stone. There is suggestion of the stent near the martha hepatis possibly within the hepatic artery. The spleen is not enlarged. There are calcified granulomas seen. The kidneys demonstrate bilateral moderate to severe hydronephrosis worse on the left side. There is dilatation of the urinary bladder was significant the irregular wall thickening seen, worse anteriorly. There is a Thomas's catheter in place. Nonobstructive the stone measuring 9 mm seen in the lower pole of the right kidney. The abdominal aorta is normal in caliber. No para-aortic significant enlarged lymph node is seen. There is no bowel obstruction. The appendix is normal. There is a moderate amounts of fecal material is seen in the colon and rectum. There is a small fat-containing umbilical hernia. The osseous structures demonstrate the likely chronic 50 percent compression fracture of the L1 vertebral body. There is associated prominent degenerative changes in the lumbar spine. IMPRESSION: Abnormal significant thickening of the urinary bladder wall could relate to severe cystitis or underlying neoplasm. This is associated with mild dilatation of the urinary bladder despite presence of a Thomas's catheter. There is bilateral hydroureteronephrosis as well. Urology evaluation is recommended. Electronically signed by: Alphonse Davis MD (03/27/2022 2:53 PM) [id number] Assessment/Plan Assessment/Plan IMP XAVIER-CR OF 3.7 BILATERAL HYDRONEPHROSIS OBSTRUCTIVE UROPATHY PROB BPH LEUCOCYTOSIS URINARY TRACT INFECTION ANEMIA PLAN THOMAS FLOMAX HYDRATION UROLOGY TO SEE ANTIBIOTICS WILL FOLLOW JONNIE LAZARO MD March 28, 2022 10:44
--- NOTE | 2022-03-28 10:46 | PDOC ---
[employer] PROGRESS NOTE Date of Service DOS: DATE: 03/28/22 TIME: 10:45 Chief Complaint Chief Complaint Obstructive uropathy (we got 4.2 L out) Probable BPH Hydronephrosis Edema Diabetes History of Present Illness History of Present Illness 03/28/2020 Patient seen exam Discussed with RN Chart reviewed Awaiting urology input Vitals/I&O Vitals/I&O: Vital Signs Date Time Temp Pulse Resp B/P (MAP) Pulse Ox O2 Delivery O2 Flow Rate FiO2 03/28/22 07:00 97.7 54 16 131/71 (91) 96 Room Air 97.7 03/27/22 15:00 98.0 I & O 03/27/22 03/27/22 03/28/22 15:00 23:00 07:00 Intake Total 100 ml 600 ml Output Total 1900 ml Balance 100 ml -1300 ml Physical Exam General: Alert, Oriented X3, Cooperative, No acute distress Heart: Regular rate Abdomen: Normal bowel sounds, No tenderness, Other (THOMAS IN) Extremities: No clubbing Skin: No rashes, No breakdown Labs Labs: Laboratory Tests Test 03/27/22 12:50 03/27/22 14:05 03/27/22 15:48 03/27/22 16:32 White Blood Count 11.6 x10^3/uL (4.0-11.0) Red Blood Count 2.95 x10^6/uL (4.30-5.70) Hemoglobin 9.2 g/dL (13.0-17.5) Hematocrit 27.7 % (39.0-53.0) Mean Corpuscular Volume 94 fL (79-100) Mean Corpuscular Hemoglobin 31 pg (25-35) Mean Corpuscular Hemoglobin Concent 33 g/dL (31-37) Red Cell Distribution Width 18.2 % (11.5-14.5) Platelet Count 274 x10^3/uL (140-400) Neutrophils (%) (Auto) 78 % (31-73) Lymphocytes (%) (Auto) 13 % (24-48) Monocytes (%) (Auto) 8 % (0-9) Eosinophils (%) (Auto) 1 % (0-3) Basophils (%) (Auto) 1 % (0-3) Neutrophils # (Auto) 9.1 x10^3/uL (1.8-7.7) Lymphocytes # (Auto) 1.5 x10^3/uL (1.0-4.8) Monocytes # (Auto) 0.9 x10^3/uL (0.0-1.1) Eosinophils # (Auto) 0.1 x10^3/uL (0.0-0.7) Basophils # (Auto) 0.1 x10^3/uL (0.0-0.2) Sodium Level 141 mmol/L (136-145) Potassium Level 4.4 mmol/L (3.5-5.1) Chloride Level 106 mmol/L (98-107) Carbon Dioxide Level 18 mmol/L (21-32) Anion Gap 17 (6-14) Blood Urea Nitrogen 47 mg/dL (8-26) Creatinine 3.7 mg/dL (0.7-1.3) Estimated GFR (Cockcroft-Gault) 16.1 BUN/Creatinine Ratio 13 (6-20) Glucose Level 133 mg/dL (70-99) Calcium Level 9.4 mg/dL (8.5-10.1) Magnesium Level 2.1 mg/dL (1.8-2.4) Total Bilirubin 0.5 mg/dL (0.2-1.0) Aspartate Amino Transf (AST/SGOT) 13 U/L (15-37) Alanine Aminotransferase (ALT/SGPT) < 6 U/L (16-63) Alkaline Phosphatase 99 U/L (46-116) Troponin I High Sensitivity 10 ng/L (4-75) 9 ng/L (4-75) Total Protein 8.0 g/dL (6.4-8.2) Albumin 3.3 g/dL (3.4-5.0) Albumin/Globulin Ratio 0.7 (1.0-1.7) Lipase 377 U/L (73-393) Thyroid Stimulating Hormone (TSH) 1.199 uIU/mL (0.358-3.74) Urine Collection Type Unknown Urine Color (Auto) Light orange Urine Turbidity Turbid Urine pH (Auto) 5.5 (<5.0-8.0) Urine Specific [place] 1.009 (1.000-1.030) Urine Protein (Auto) 50 mg/dL (Negative) Urine Glucose (Auto)(UA) Negative mg/dL (Negative) Urine Ketones (Auto) Negative mg/dL (Negative) Urine Blood (Auto) Moderate (Negative) Urine Nitrite (Auto) Negative (Negative) Urine Bilirubin (Auto) Negative (Negative) Urine Urobilinogen (Auto) Normal mg/dL (Normal) Urine Leukocyte Esterase (Auto) Large (Negative) Urine RBC 0 /HPF (0-2) Urine WBC Tntc /HPF (0-4) Urine Bacteria Mod /HPF (0-FEW) Glucose (Fingerstick) 100 mg/dL (70-99) Test 03/27/22 21:14 03/28/22 02:00 03/28/22 07:56 Glucose (Fingerstick) 119 mg/dL (70-99) 124 mg/dL (70-99) Sodium Level 142 mmol/L (136-145) Potassium Level 4.6 mmol/L (3.5-5.1) Chloride Level 109 mmol/L (98-107) Carbon Dioxide Level 22 mmol/L (21-32) Anion Gap 11 (6-14) Blood Urea Nitrogen 44 mg/dL (8-26) Creatinine 2.9 mg/dL (0.7-1.3) Estimated GFR (Cockcroft-Gault) 21.4 BUN/Creatinine Ratio 15 (6-20) Glucose Level 106 mg/dL (70-99) Calcium Level 8.6 mg/dL (8.5-10.1) Phosphorus Level 4.2 mg/dL (2.6-4.7) Magnesium Level 2.0 mg/dL (1.8-2.4) Total Bilirubin 0.3 mg/dL (0.2-1.0) Aspartate Amino Transf (AST/SGOT) 11 U/L (15-37) Alanine Aminotransferase (ALT/SGPT) < 6 U/L (16-63) Alkaline Phosphatase 85 U/L (46-116) Troponin I High Sensitivity 11 ng/L (4-75) Total Protein 6.7 g/dL (6.4-8.2) Albumin 2.8 g/dL (3.4-5.0) Albumin/Globulin Ratio 0.7 (1.0-1.7) Assessment and Plan Assessmemt and Plan Problems Medical Problems: (1) Acute renal failure Status: Acute (2) Acute urinary retention Status: Acute Obstructive uropathy (we got 4.2 L out) Probable BPH Hydronephrosis Edema Diabetes Plan Thomas to BSD Flomax IV antibiotics Await urology input Home meds DVT prophylaxis Full code Trend labs Comment Review of Relevant I have reviewed the following items chelsea (where applicable) has been applied. Medications: Current Medications Medications (Trade) Dose Ordered Sig/[place] Route PRN Reason Start Time Stop Time Status Last Admin Dose Admin Aspirin (Prudencio Aspirin) 325 mg 1X ONCE PO 03/27/22 13:00 03/27/22 13:04 DC 03/27/22 13:22 Aspirin (Aspirin Chewable) 81 mg DAILY PO 03/28/22 09:00 03/28/22 09:13 Carbidopa/Levodopa (Sinemet 25/100) 2 tab BID PO 03/27/22 21:00 03/28/22 09:16 Ascorbic Acid (Vitamin C) 500 mg DAILY PO 03/28/22 09:00 03/28/22 09:19 DC 03/28/22 09:16 Cyanocobalamin (Vitamin B-12) 2,500 mcg DAILY PO 03/28/22 09:00 03/28/22 09:19 DC 03/28/22 09:16 Ceftriaxone Sodium (Rocephin) 1 gm Q24H IVP 03/27/22 15:00 03/27/22 14:54 Sodium Chloride 1,000 ml @ 100 mls/hr Q10H IV 03/27/22 18:00 03/28/22 04:01 Justifications for Admission Other Justification LING ANDERSON III DO March 28, 2022 10:46
[2022-03-28 11:00] VITALS: BP 105/63
[2022-03-28 15:00] VITALS: BP 101/58
[2022-03-28] MEDS: cefTRIAXone IV Push 1 GM VIAL. IVP SCH (15:00)
--- NOTE | 2022-03-28 18:36 | PDOC2 ---
UROLOGY CONSULT DOS: DATE: 03/28/22 TIME: 15:10 Reason for Consult: retention Chief Complaint 76 year old male presented to [facility] per his PCPs direction on 03/27. Per patient, his kidney levels were elevated. Patient states it was a normal appt for him, was not having any acute issues. Patient states he has had difficulty urinating for 3-4 months. Complains of frequency, dysuria, urgency, dribbling, and not emptying completely. Denies fevers, chills, hematuria, flank pain. Creat 3.[address] A/P completed showing distended bladder with bilateral hydro nephrosis. Patient states that he has never seen a urologist. Patient states he has never had a PSA done, had a prostate exam 5 years ago and was told it was large. Does not take any medications for his prostate.Leyva catheter placed in ER with >2L output. Leyva catheter with clear yellow urine. ROS ROS: RESPIRATORY: Shortness of breath denies. Cough denies. UROLOGY: Denies blood in urine. Current Medications Current Medications Aspirin (Prudencio Aspirin) 325 mg 1X ONCE PO Last administered on 03/27/22at 13:22; Start 03/27/22 at 13:00; Stop 03/27/22 at 13:04; Status DC Aspirin (Aspirin Chewable) 81 mg DAILY PO Last administered on 03/28/22at 09:13; Start 03/28/22 at 09:00 Carbidopa/Levodopa (Sinemet 25/100) 2 tab BID PO Last administered on 03/28/22at 09:16; Start 03/27/22 at 21:00 Furosemide (Lasix) 20 mg DAILY PO ; Start 03/28/22 at 09:00; Stop 03/27/22 at 18:54; Status DC Potassium Chloride (Klor-Con) 10 meq DAILY PO ; Start 03/28/22 at 09:00; Stop 03/27/22 at 18:54; Status DC Ascorbic Acid (Vitamin C) 500 mg DAILY PO Last administered on 03/28/22at 09:16; Start 03/28/22 at 09:00; Stop 03/28/22 at 09:19; Status DC Cyanocobalamin (Vitamin B-12) 2,500 mcg DAILY PO Last administered on 03/28/22at 09:16; Start 03/28/22 at 09:00; Stop 03/28/22 at 09:19; Status DC Non-Formulary Medication (Metformin Hcl ) 1,000 mg DAILYWBKFT PO ; Start 03/28/22 at 08:00; Status UNV Ceftriaxone Sodium (Rocephin) 1 gm Q24H IVP Last administered on 03/28/22at 15:00; Start 03/27/22 at 15:00 Sodium Chloride 1,000 ml @ 100 mls/hr Q10H IV Last administered on 03/28/22at 14:00; Start 03/27/22 at 18:00 Tamsulosin HCl (Flomax) 0.4 mg QHS PO ; Start 03/28/22 at 21:00 Lactobacillus Rhamnosus (Culturelle) 1 cap BID PO ; Start 03/28/22 at 21:00 Active Scripts Active Reported Multi Vitamin Daily (Multivitamin) 1 Each Tablet 1 Tab PO DAILY 30 Days Metformin Hcl 1,000 Mg Tablet 1,000 Mg PO DAILYWBKFT Klor-Con 10 (Potassium Chloride) 10 Meq Tablet.er 10 Meq PO DAILY Furosemide 20 Mg Tablet 20 Mg PO DAILY Vitamin B12 (Cyanocobalamin (Vitamin B-12)) 2,500 Mcg Tablet 1 Tab PO QMTH 30 Days Vitamin C (Ascorbic Acid) 100 Mg Tablet 1 Tab PO DAILY 30 Days Aspirin 81 Mg Tab.chew 81 Mg PO DAILY Carbidopa-Levodopa 25-100 Tab (Carbidopa/Levodopa) 1 Each Tablet 2 Tab PO BID 30 Days Allergies: Coded Allergies: codeine (Verified Adverse Reaction, Severe, Nausea, 03/28/22) Physical Examination PHYSICAL EXAMINATION: GENERAL: Gen. appearance: No acute distress. Mood/affect: Pleasant. HEENT: Head: Normocephalic, atraumatic. Airway Impairment: No. CHEST: Shape and expansion: Normal. Expansion: Normal. SKIN: General: Warm. Color: Good. GENITOURINARY:Leyva catheter with clear yellow urine. NEUROLOGICAL: Mental status: Alert and oriented 3. Language: Normal. VITALS Vital Signs Date Time Temp Pulse Resp B/P (MAP) Pulse Ox O2 Delivery O2 Flow Rate FiO2 03/28/22 11:00 97.6 57 18 105/63 (77) 99 Room Air 97.6 03/28/22 08:00 98.0 Labs Laboratory Tests Test 03/27/22 12:50 03/27/22 14:05 03/27/22 15:48 03/27/22 16:32 White Blood Count 11.6 x10^3/uL (4.0-11.0) Red Blood Count 2.95 x10^6/uL (4.30-5.70) Hemoglobin 9.2 g/dL (13.0-17.5) Hematocrit 27.7 % (39.0-53.0) Mean Corpuscular Volume 94 fL (79-100) Mean Corpuscular Hemoglobin 31 pg (25-35) Mean Corpuscular Hemoglobin Concent 33 g/dL (31-37) Red Cell Distribution Width 18.2 % (11.5-14.5) Platelet Count 274 x10^3/uL (140-400) Neutrophils (%) (Auto) 78 % (31-73) Lymphocytes (%) (Auto) 13 % (24-48) Monocytes (%) (Auto) 8 % (0-9) Eosinophils (%) (Auto) 1 % (0-3) Basophils (%) (Auto) 1 % (0-3) Neutrophils # (Auto) 9.1 x10^3/uL (1.8-7.7) Lymphocytes # (Auto) 1.5 x10^3/uL (1.0-4.8) Monocytes # (Auto) 0.9 x10^3/uL (0.0-1.1) Eosinophils # (Auto) 0.1 x10^3/uL (0.0-0.7) Basophils # (Auto) 0.1 x10^3/uL (0.0-0.2) Sodium Level 141 mmol/L (136-145) Potassium Level 4.4 mmol/L (3.5-5.1) Chloride Level 106 mmol/L (98-107) Carbon Dioxide Level 18 mmol/L (21-32) Anion Gap 17 (6-14) Blood Urea Nitrogen 47 mg/dL (8-26) Creatinine 3.7 mg/dL (0.7-1.3) Estimated GFR (Cockcroft-Gault) 16.1 BUN/Creatinine Ratio 13 (6-20) Glucose Level 133 mg/dL (70-99) Calcium Level 9.4 mg/dL (8.5-10.1) Magnesium Level 2.1 mg/dL (1.8-2.4) Total Bilirubin 0.5 mg/dL (0.2-1.0) Aspartate Amino Transf (AST/SGOT) 13 U/L (15-37) Alanine Aminotransferase (ALT/SGPT) < 6 U/L (16-63) Alkaline Phosphatase 99 U/L (46-116) Troponin I High Sensitivity 10 ng/L (4-75) 9 ng/L (4-75) Total Protein 8.0 g/dL (6.4-8.2) Albumin 3.3 g/dL (3.4-5.0) Albumin/Globulin Ratio 0.7 (1.0-1.7) Lipase 377 U/L (73-393) Thyroid Stimulating Hormone (TSH) 1.199 uIU/mL (0.358-3.74) Urine Collection Type Unknown Urine Color (Auto) Light orange Urine Turbidity Turbid Urine pH (Auto) 5.5 (<5.0-8.0) Urine Specific [place] 1.009 (1.000-1.030) Urine Protein (Auto) 50 mg/dL (Negative) Urine Glucose (Auto)(UA) Negative mg/dL (Negative) Urine Ketones (Auto) Negative mg/dL (Negative) Urine Blood (Auto) Moderate (Negative) Urine Nitrite (Auto) Negative (Negative) Urine Bilirubin (Auto) Negative (Negative) Urine Urobilinogen (Auto) Normal mg/dL (Normal) Urine Leukocyte Esterase (Auto) Large (Negative) Urine RBC 0 /HPF (0-2) Urine WBC Tntc /HPF (0-4) Urine Bacteria Mod /HPF (0-FEW) Glucose (Fingerstick) 100 mg/dL (70-99) Test 03/27/22 21:14 03/28/22 02:00 03/28/22 07:56 03/28/22 11:07 Glucose (Fingerstick) 119 mg/dL (70-99) 124 mg/dL (70-99) 113 mg/dL (70-99) Sodium Level 142 mmol/L (136-145) Potassium Level 4.6 mmol/L (3.5-5.1) Chloride Level 109 mmol/L (98-107) Carbon Dioxide Level 22 mmol/L (21-32) Anion Gap 11 (6-14) Blood Urea Nitrogen 44 mg/dL (8-26) Creatinine 2.9 mg/dL (0.7-1.3) Estimated GFR (Cockcroft-Gault) 21.4 BUN/Creatinine Ratio 15 (6-20) Glucose Level 106 mg/dL (70-99) Calcium Level 8.6 mg/dL (8.5-10.1) Phosphorus Level 4.2 mg/dL (2.6-4.7) Magnesium Level 2.0 mg/dL (1.8-2.4) Total Bilirubin 0.3 mg/dL (0.2-1.0) Aspartate Amino Transf (AST/SGOT) 11 U/L (15-37) Alanine Aminotransferase (ALT/SGPT) < 6 U/L (16-63) Alkaline Phosphatase 85 U/L (46-116) Troponin I High Sensitivity 11 ng/L (4-75) Total Protein 6.7 g/dL (6.4-8.2) Albumin 2.8 g/dL (3.4-5.0) Albumin/Globulin Ratio 0.7 (1.0-1.7) Test 03/28/22 17:07 Glucose (Fingerstick) 127 mg/dL (70-99) Laboratory Tests Test 03/27/22 21:14 03/28/22 02:00 03/28/22 07:56 03/28/22 11:07 Glucose (Fingerstick) 119 mg/dL (70-99) 124 mg/dL (70-99) 113 mg/dL (70-99) Sodium Level 142 mmol/L (136-145) Potassium Level 4.6 mmol/L (3.5-5.1) Chloride Level 109 mmol/L (98-107) Carbon Dioxide Level 22 mmol/L (21-32) Anion Gap 11 (6-14) Blood Urea Nitrogen 44 mg/dL (8-26) Creatinine 2.9 mg/dL (0.7-1.3) Estimated GFR (Cockcroft-Gault) 21.4 BUN/Creatinine Ratio 15 (6-20) Glucose Level 106 mg/dL (70-99) Calcium Level 8.6 mg/dL (8.5-10.1) Phosphorus Level 4.2 mg/dL (2.6-4.7) Magnesium Level 2.0 mg/dL (1.8-2.4) Total Bilirubin 0.3 mg/dL (0.2-1.0) Aspartate Amino Transf (AST/SGOT) 11 U/L (15-37) Alanine Aminotransferase (ALT/SGPT) < 6 U/L (16-63) Alkaline Phosphatase 85 U/L (46-116) Troponin I High Sensitivity 11 ng/L (4-75) Total Protein 6.7 g/dL (6.4-8.2) Albumin 2.8 g/dL (3.4-5.0) Albumin/Globulin Ratio 0.7 (1.0-1.7) Test 03/28/22 17:07 Glucose (Fingerstick) 127 mg/dL (70-99) Assessment/Plan ---Urinary retention Most likely due to prostate. Creat trending down, 2.[address] A/P without other obstructive uropathy. Does endorse chronic constipation that needs aggressive bowel regimen. Tamsulosin started. Continue bladder decompression until creatinine normalizes. Will start finasteride for senior living prostate management. Discussed prostate interventions with patient and family. Will need followup. UA with infection, antibiotics initiated by primary. If creat is normal tomorrow, can attempt voiding trial. Patient will most likely require a catheter until follow up to further explore prostate interventions. Urology will follow. DARY REGAN APRN March 28, 2022 18:36
[2022-03-28 19:00] VITALS: BP 100/62
[2022-03-28] MEDS: TAMSULOSIN 0.4 MG CAP.ER.24H. PO SCH (20:32)
[2022-03-28] MEDS: LACTOBACILLUS RHAMNOSUS GG 1 CAPSULE. PO SCH (20:32)
[2022-03-28 23:00] VITALS: BP 100/59
[2022-03-29] MEDS: IV NORMAL SALINE 1000ML BAG 1,000 ML IV SCH ×3 (00:15→21:07)
[2022-03-29 03:00] VITALS: BP 97/68
[2022-03-29 05:50] LABS: CALCIUM 7.9 mg/dL (8.5-10.1); CREATININE 2.3 mg/dL (0.7-1.3); GFR 27.9; MAGNESIUM 1.6 mg/dL (1.8-2.4); PHOSPHORUS 2.9 mg/dL (2.6-4.7)
[2022-03-29 06:00] VITALS: BP 100/67
[2022-03-29] MEDS ORDERED: MAGNESIUM SULFATE 2GM 50 ML IV ONE (08:00)
[2022-03-29] MEDS: CARBIDOPA/LEVODOPA 25/100MG TABLET PO SCH ×2 (09:20→21:06)
[2022-03-29] MEDS: LACTOBACILLUS RHAMNOSUS GG 1 CAPSULE. PO SCH ×2 (09:20→21:06)
[2022-03-29] MEDS: ASPIRIN CHEWABLE 81 MG TABLET. PO SCH (09:20)
[2022-03-29] MEDS: FINASTERIDE 5 MG TABLET. PO SCH (09:20)
[2022-03-29 11:00] VITALS: BP 110/71
--- NOTE | 2022-03-29 11:41 | PDOC ---
Renal-Progress Notes Subjective Notes Notes FEELING BETTER History of Present Illness Hx of present illness STABLE Vitals Vitals Vital Signs Date Time Temp Pulse Resp B/P (MAP) Pulse Ox O2 Delivery O2 Flow Rate FiO2 03/29/22 08:00 Room Air 98.0 03/29/22 06:00 97.8 59 18 100/67 (78) 97 97.8 Weight Weight [ ] I.O. Intake and Output Intake and Output 03/29/22 07:00 Intake Total 240 ml Output Total 3150 ml Balance -2910 ml Intake Oral 240 ml Output Urine Total 3150 ml Labs Labs Laboratory Tests Test 03/28/22 17:07 03/28/22 20:32 03/29/22 04:45 03/29/22 08:05 Glucose (Fingerstick) 127 mg/dL (70-99) 118 mg/dL (70-99) 98 mg/dL (70-99) Sodium Level 143 mmol/L (136-145) Potassium Level 4.0 mmol/L (3.5-5.1) Chloride Level 111 mmol/L (98-107) Carbon Dioxide Level 21 mmol/L (21-32) Anion Gap 11 (6-14) Blood Urea Nitrogen 30 mg/dL (8-26) Creatinine 2.3 mg/dL (0.7-1.3) Estimated GFR (Cockcroft-Gault) 27.9 Glucose Level 108 mg/dL (70-99) Calcium Level 7.9 mg/dL (8.5-10.1) Phosphorus Level 2.9 mg/dL (2.6-4.7) Magnesium Level 1.6 mg/dL (1.8-2.4) Review of Systems Constitutional: yes: weakness, alert, oriented Ears/Nose/Throat: Yes: no symptom reported Eyes: Yes: no symptom reported Pulmonary: Yes no symptom reported Cardiovascular: Yes no symptom reported Gastrointestional: Yes: no symptom reported Genitourinary: Yes: retention Musculoskeletal: Yes: no symptom reported Skin: Yes no symptom reported Endocrine: Yes: no symptom reported Physical Exam General Appearance: no apparent distress Skin: warm, dry Respiratory: bilateral CTA Heart: S1S2, RRR Abdomen: soft, bowel sounds present Genitourinary: bladder flat, santiago catheter Extremities: pulses present Neurology: alert, oriented Assessment Assessment IMP XAVIER-CR OF 3.7 - IMPROVED TO 2.3 HYPOMAGNESEMIA BILATERAL HYDRONEPHROSIS OBSTRUCTIVE UROPATHY PROB BPH LEUCOCYTOSIS URINARY TRACT INFECTION ANEMIA PLAN SANTIAGO FLOMAX HYDRATION UROLOGY EVAL ANTIBIOTICS WILL FOLLOW JONNIE LAZARO MD March 29, 2022 11:41
--- NOTE | 2022-03-29 12:04 | PDOC ---
[facility] PROGRESS NOTE Date of Service DOS: DATE: 03/29/22 TIME: 12:00 Chief Complaint Chief Complaint Obstructive uropathy (we got 4.2 L out) Probable BPH Hydronephrosis Edema Diabetes History of Present Illness History of Present Illness 03/29/2022 No acute events overnight. Patient seen examined bedside. Patient clinically improved. Creatinine improved to 2.3. Magnesium 1.6 and replaced with IV 2 g of magnesium sulfate. Continue IV fluids and continue IV antibiotics. Pending urine cultures. Pending urology evaluation. Patient's chart, labs, images were reviewed and discussed with RN 03/28/2020 Patient seen exam Discussed with RN Chart reviewed Awaiting urology input Vitals/I&O Vitals/I&O: Vital Signs Date Time Temp Pulse Resp B/P (MAP) Pulse Ox O2 Delivery O2 Flow Rate FiO2 03/29/22 08:00 Room Air 98.0 03/29/22 06:00 97.8 59 18 100/67 (78) 97 97.8 I & O 03/28/22 03/28/22 03/29/22 15:00 23:00 07:00 Intake Total 240 ml Output Total 500 ml 1550 ml 1100 ml Balance -500 ml -1310 ml -1100 ml Physical Exam General: Alert, Oriented X3, Cooperative, No acute distress Heart: Regular rate Abdomen: Normal bowel sounds, No tenderness, Other (THOMAS IN) Extremities: No clubbing Skin: No rashes, No breakdown Labs Labs: Laboratory Tests Test 03/28/22 17:07 03/28/22 20:32 03/29/22 04:45 03/29/22 08:05 Glucose (Fingerstick) 127 mg/dL (70-99) 118 mg/dL (70-99) 98 mg/dL (70-99) Sodium Level 143 mmol/L (136-145) Potassium Level 4.0 mmol/L (3.5-5.1) Chloride Level 111 mmol/L (98-107) Carbon Dioxide Level 21 mmol/L (21-32) Anion Gap 11 (6-14) Blood Urea Nitrogen 30 mg/dL (8-26) Creatinine 2.3 mg/dL (0.7-1.3) Estimated GFR (Cockcroft-Gault) 27.9 Glucose Level 108 mg/dL (70-99) Calcium Level 7.9 mg/dL (8.5-10.1) Phosphorus Level 2.9 mg/dL (2.6-4.7) Magnesium Level 1.6 mg/dL (1.8-2.4) Assessment and Plan Assessmemt and Plan Problems Medical Problems: (1) Acute renal failure Status: Acute (2) Acute urinary retention Status: Acute Comment Review of Relevant I have reviewed the following items chelsea (where applicable) has been applied. Medications: Current Medications Medications (Trade) Dose Ordered Sig/[place] Route PRN Reason Start Time Stop Time Status Last Admin Dose Admin Tamsulosin HCl (Flomax) 0.4 mg QHS PO 03/28/22 21:00 03/28/22 20:32 Lactobacillus Rhamnosus (Culturelle) 1 cap BID PO 03/28/22 21:00 03/29/22 09:20 Finasteride (Proscar) 5 mg DAILY PO 03/29/22 09:00 03/29/22 09:20 Magnesium Sulfate 50 ml @ 25 mls/hr 1X ONCE IV 03/29/22 08:00 03/29/22 09:59 DC 03/29/22 08:21 Justifications for Admission Other Justification CLEMENTE MAXWELL MD March 29, 2022 12:04
[2022-03-29 15:00] VITALS: BP 112/69
[2022-03-29] MEDS: cefTRIAXone IV Push 1 GM VIAL. IVP SCH (16:27)
--- NOTE | 2022-03-29 17:09 | PDOC ---
PROGRESS NOTE DATE OF SERVICE: DATE: 03/29/22 TIME: 17:05 CHIEF COMPLAINT: retention SUBJECTIVE: HPI: Patient resting in bed. No new complaints. Santiago catheter with clear yellow urine. Problems: Problems Medical Problems: (1) Acute renal failure Status: Acute (2) Acute urinary retention Status: Acute OBJECTIVE: Vital Signs: Vital Signs Date Time Temp Pulse Resp B/P (MAP) Pulse Ox O2 Delivery O2 Flow Rate FiO2 03/29/22 11:00 98.1 59 18 110/71 (84) 98 Room Air 98.1 03/29/22 08:00 Room Air 98.0 03/29/22 06:00 97.8 59 18 100/67 (78) 97 Room Air 97.8 03/29/22 03:00 98.0 60 18 97/68 (78) 98 Room Air 98.0 03/28/22 23:00 98.4 62 18 100/59 (73) 94 Room Air 98.4 03/28/22 20:00 Room Air 03/28/22 19:00 98.5 60 18 100/62 (75) 97 Room Air 98.5 I & O Intake and Output 03/29/22 06:59 Intake Total 240 ml Output Total 3150 ml Balance -2910 ml Intake Oral 240 ml Output Urine Total 3150 ml PHYSICAL EXAM: Physical Exam: General: Pleasant, no acute distress, well groomed Eyes: conjunctiva anicteric, eyes full range of motion ENT: moist oral mucosa, normal dentition Neck: Trachea midline, no masses Abdomen: nontender, nondistended, no hepatosplenomegaly, no masses Skin: no rashes or skin lesions on visualized skin Psych: normal mood, affect. Alert and oriented x 3. : santiago catheter with clear yellow urine LABS: Laboratory Tests Test 03/27/22 12:50 03/27/22 14:05 03/27/22 15:48 03/27/22 16:32 White Blood Count 11.6 x10^3/uL (4.0-11.0) Red Blood Count 2.95 x10^6/uL (4.30-5.70) Hemoglobin 9.2 g/dL (13.0-17.5) Hematocrit 27.7 % (39.0-53.0) Mean Corpuscular Volume 94 fL (79-100) Mean Corpuscular Hemoglobin 31 pg (25-35) Mean Corpuscular Hemoglobin Concent 33 g/dL (31-37) Red Cell Distribution Width 18.2 % (11.5-14.5) Platelet Count 274 x10^3/uL (140-400) Neutrophils (%) (Auto) 78 % (31-73) Lymphocytes (%) (Auto) 13 % (24-48) Monocytes (%) (Auto) 8 % (0-9) Eosinophils (%) (Auto) 1 % (0-3) Basophils (%) (Auto) 1 % (0-3) Neutrophils # (Auto) 9.1 x10^3/uL (1.8-7.7) Lymphocytes # (Auto) 1.5 x10^3/uL (1.0-4.8) Monocytes # (Auto) 0.9 x10^3/uL (0.0-1.1) Eosinophils # (Auto) 0.1 x10^3/uL (0.0-0.7) Basophils # (Auto) 0.1 x10^3/uL (0.0-0.2) Sodium Level 141 mmol/L (136-145) Potassium Level 4.4 mmol/L (3.5-5.1) Chloride Level 106 mmol/L (98-107) Carbon Dioxide Level 18 mmol/L (21-32) Anion Gap 17 (6-14) Blood Urea Nitrogen 47 mg/dL (8-26) Creatinine 3.7 mg/dL (0.7-1.3) Estimated GFR (Cockcroft-Gault) 16.1 BUN/Creatinine Ratio 13 (6-20) Glucose Level 133 mg/dL (70-99) Calcium Level 9.4 mg/dL (8.5-10.1) Magnesium Level 2.1 mg/dL (1.8-2.4) Total Bilirubin 0.5 mg/dL (0.2-1.0) Aspartate Amino Transf (AST/SGOT) 13 U/L (15-37) Alanine Aminotransferase (ALT/SGPT) < 6 U/L (16-63) Alkaline Phosphatase 99 U/L (46-116) Troponin I High Sensitivity 10 ng/L (4-75) 9 ng/L (4-75) Total Protein 8.0 g/dL (6.4-8.2) Albumin 3.3 g/dL (3.4-5.0) Albumin/Globulin Ratio 0.7 (1.0-1.7) Lipase 377 U/L (73-393) Thyroid Stimulating Hormone (TSH) 1.199 uIU/mL (0.358-3.74) Urine Collection Type Unknown Urine Color (Auto) Light orange Urine Turbidity Turbid Urine pH (Auto) 5.5 (<5.0-8.0) Urine Specific [place] 1.009 (1.000-1.030) Urine Protein (Auto) 50 mg/dL (Negative) Urine Glucose (Auto)(UA) Negative mg/dL (Negative) Urine Ketones (Auto) Negative mg/dL (Negative) Urine Blood (Auto) Moderate (Negative) Urine Nitrite (Auto) Negative (Negative) Urine Bilirubin (Auto) Negative (Negative) Urine Urobilinogen (Auto) Normal mg/dL (Normal) Urine Leukocyte Esterase (Auto) Large (Negative) Urine RBC 0 /HPF (0-2) Urine WBC Tntc /HPF (0-4) Urine Bacteria Mod /HPF (0-FEW) Glucose (Fingerstick) 100 mg/dL (70-99) Test 03/27/22 21:14 03/28/22 02:00 03/28/22 07:56 03/28/22 11:07 Glucose (Fingerstick) 119 mg/dL (70-99) 124 mg/dL (70-99) 113 mg/dL (70-99) Sodium Level 142 mmol/L (136-145) Potassium Level 4.6 mmol/L (3.5-5.1) Chloride Level 109 mmol/L (98-107) Carbon Dioxide Level 22 mmol/L (21-32) Anion Gap 11 (6-14) Blood Urea Nitrogen 44 mg/dL (8-26) Creatinine 2.9 mg/dL (0.7-1.3) Estimated GFR (Cockcroft-Gault) 21.4 BUN/Creatinine Ratio 15 (6-20) Glucose Level 106 mg/dL (70-99) Calcium Level 8.6 mg/dL (8.5-10.1) Phosphorus Level 4.2 mg/dL (2.6-4.7) Magnesium Level 2.0 mg/dL (1.8-2.4) Total Bilirubin 0.3 mg/dL (0.2-1.0) Aspartate Amino Transf (AST/SGOT) 11 U/L (15-37) Alanine Aminotransferase (ALT/SGPT) < 6 U/L (16-63) Alkaline Phosphatase 85 U/L (46-116) Troponin I High Sensitivity 11 ng/L (4-75) Total Protein 6.7 g/dL (6.4-8.2) Albumin 2.8 g/dL (3.4-5.0) Albumin/Globulin Ratio 0.7 (1.0-1.7) Test 03/28/22 17:07 03/28/22 20:32 03/29/22 04:45 03/29/22 08:05 Glucose (Fingerstick) 127 mg/dL (70-99) 118 mg/dL (70-99) 98 mg/dL (70-99) Sodium Level 143 mmol/L (136-145) Potassium Level 4.0 mmol/L (3.5-5.1) Chloride Level 111 mmol/L (98-107) Carbon Dioxide Level 21 mmol/L (21-32) Anion Gap 11 (6-14) Blood Urea Nitrogen 30 mg/dL (8-26) Creatinine 2.3 mg/dL (0.7-1.3) Estimated GFR (Cockcroft-Gault) 27.9 Glucose Level 108 mg/dL (70-99) Calcium Level 7.9 mg/dL (8.5-10.1) Phosphorus Level 2.9 mg/dL (2.6-4.7) Magnesium Level 1.6 mg/dL (1.8-2.4) Test 03/29/22 12:58 Glucose (Fingerstick) 112 mg/dL (70-99) MEDICATIONS: Current Medications Medications (Trade) Dose Ordered Sig/[place] Start Time Stop Time Status Last Admin Dose Admin Ascorbic Acid (Vitamin C) 500 mg DAILY 03/28/22 09:00 03/28/22 09:19 DC 03/28/22 09:16 500 MG Aspirin (Aspirin Chewable) 81 mg DAILY 03/28/22 09:00 03/29/22 09:20 81 MG Aspirin (Prudencio Aspirin) 325 mg 1X ONCE 03/27/22 13:00 03/27/22 13:04 DC 03/27/22 13:22 325 MG Carbidopa/Levodopa (Sinemet 25/100) 2 tab BID 03/27/22 21:00 03/29/22 09:20 2 TAB Ceftriaxone Sodium (Rocephin) 1 gm Q24H 03/27/22 15:00 03/29/22 16:27 1 GM Cyanocobalamin (Vitamin B-12) 2,500 mcg DAILY 03/28/22 09:00 03/28/22 09:19 DC 03/28/22 09:16 2,500 MCG Finasteride (Proscar) 5 mg DAILY 03/29/22 09:00 03/29/22 09:20 5 MG Furosemide (Lasix) 20 mg DAILY 03/28/22 09:00 03/27/22 18:54 DC Lactobacillus Rhamnosus (Culturelle) 1 cap BID 03/28/22 21:00 03/29/22 09:20 1 CAP Magnesium Sulfate 50 ml @ 25 mls/hr 1X ONCE 03/29/22 08:00 03/29/22 09:59 DC 03/29/22 08:21 25 MLS/HR Non-Formulary Medication (Metformin Hcl ) 1,000 mg DAILYWBKFT 03/28/22 08:00 UNV Potassium Chloride (Klor-Con) 10 meq DAILY 03/28/22 09:00 03/27/22 18:54 DC Sodium Chloride 1,000 ml @ 100 mls/hr Q10H 03/27/22 18:00 03/29/22 10:00 100 MLS/HR Tamsulosin HCl (Flomax) 0.4 mg QHS 03/28/22 21:00 03/28/22 20:32 0.4 MG ASSESSMENT & PLAN ---Urinary retention Most likely due to prostate. Creat trending down, 2.[address] A/P without other obstructive uropathy. Does endorse chronic constipation that needs aggressive bowel regimen. Tamsulosin started. 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 Discussed prostate interventions with patient and family. UA with infection, antibiotics initiated by primary. Recommend 14 days of culture sensitive antibiotics. Discussed concern of patient failing voiding trial if attempted. Will keep santiago catheter in and have patient follow up with us in 2 weeks. Patient agreeable. Call with urology questions. Problem List: Problems Medical Problems: (1) Acute renal failure Status: Acute (2) Acute urinary retention Status: Acute DARY REGAN APRN March 29, 2022 17:09
[2022-03-29 19:00] VITALS: BP 106/66
[2022-03-29] MEDS: TAMSULOSIN 0.4 MG CAP.ER.24H. PO SCH (21:05)
[2022-03-29 23:00] VITALS: BP 100/64
[2022-03-30 03:00] VITALS: BP 105/71
[2022-03-30 04:34] LABS: CALCIUM 7.6 mg/dL (8.5-10.1); CREATININE 1.9 mg/dL (0.7-1.3); GFR 34.8; MAGNESIUM 1.7 mg/dL (1.8-2.4); POTASSIUM 4.1 mmol/L (3.5-5.1)
[2022-03-30 07:00] VITALS: BP 104/69
[2022-03-30] MEDS: FINASTERIDE 5 MG TABLET. PO SCH (07:32)
[2022-03-30] MEDS: CARBIDOPA/LEVODOPA 25/100MG TABLET PO SCH (07:34)
[2022-03-30] MEDS: LACTOBACILLUS RHAMNOSUS GG 1 CAPSULE. PO SCH (07:34)
[2022-03-30] MEDS: ASPIRIN CHEWABLE 81 MG TABLET. PO SCH (07:34)
[2022-03-30] MEDS: IV NORMAL SALINE 1000ML BAG 1,000 ML IV SCH ×2 (07:35→15:04)
--- NOTE | 2022-03-30 10:47 | PDOC ---
Renal-Progress Notes Subjective Notes Notes NO NEW COMPLAINTS History of Present Illness Hx of present illness STABLE Vitals Vitals Vital Signs Date Time Temp Pulse Resp B/P (MAP) Pulse Ox O2 Delivery O2 Flow Rate FiO2 03/30/22 08:00 Room Air 98.0 03/30/22 07:00 98.3 62 16 104/69 (81) 95 98.3 Weight Weight [ ] I.O. Intake and Output Intake and Output 03/30/22 07:00 Intake Total 7900 ml Output Total 7250 ml Balance 650 ml Intake Oral 7900 ml Output Urine Total 7250 ml Labs Labs Laboratory Tests Test 03/29/22 12:58 03/29/22 17:29 03/29/22 20:40 03/30/22 03:15 Glucose (Fingerstick) 112 mg/dL (70-99) 123 mg/dL (70-99) 109 mg/dL (70-99) Sodium Level 143 mmol/L (136-145) Potassium Level 4.1 mmol/L (3.5-5.1) Chloride Level 113 mmol/L (98-107) Carbon Dioxide Level 22 mmol/L (21-32) Anion Gap 8 (6-14) Blood Urea Nitrogen 23 mg/dL (8-26) Creatinine 1.9 mg/dL (0.7-1.3) Estimated GFR (Cockcroft-Gault) 34.8 Glucose Level 107 mg/dL (70-99) Calcium Level 7.6 mg/dL (8.5-10.1) Magnesium Level 1.7 mg/dL (1.8-2.4) Test 03/30/22 07:32 Glucose (Fingerstick) 92 mg/dL (70-99) Review of Systems Constitutional: yes: weakness, alert, oriented Ears/Nose/Throat: Yes: no symptom reported Eyes: Yes: no symptom reported Pulmonary: Yes no symptom reported Cardiovascular: Yes no symptom reported Gastrointestional: Yes: no symptom reported Genitourinary: Yes: retention Musculoskeletal: Yes: no symptom reported Skin: Yes no symptom reported Endocrine: Yes: no symptom reported Physical Exam General Appearance: no apparent distress Skin: warm, dry Respiratory: bilateral CTA Heart: S1S2, RRR Abdomen: soft, bowel sounds present Genitourinary: bladder flat, santiago catheter Extremities: pulses present Neurology: alert, oriented Assessment Assessment IMP XAVIER-CR OF 3.7 - IMPROVED TO 1.5 HYPOMAGNESEMIA BILATERAL HYDRONEPHROSIS OBSTRUCTIVE UROPATHY PROB BPH LEUCOCYTOSIS URINARY TRACT INFECTION ANEMIA PLAN SANTIAGO FLOMAX HYDRATION UROLOGY EVAL FINASTERIDE STARTED MAG REPLACEMENT ANTIBIOTICS WILL FOLLOW JONNIE LAZARO MD March 30, 2022 10:47
[2022-03-30] MEDS ORDERED: MAGNESIUM SULFATE 2GM 50 ML IV ONE (11:00)
[2022-03-30 11:08] VITALS: BP 98/56
--- NOTE | 2022-03-30 13:03 | NUR ---
Dr. Mtz paged and called back. Patient can go home after Magnesium IV given. Dr. Aguillon notified.
[2022-03-30] MEDS ORDERED: FINA5TAB4 PO (13:09)
[2022-03-30] MEDS ORDERED: CIPR500T94 PO (13:09)
[2022-03-30] MEDS ORDERED: TAMS0.4C97 PO (13:09)
[2022-03-30 14:56] VITALS: BP 104/60
[2022-03-30] MEDS: cefTRIAXone IV Push 1 GM VIAL. IVP SCH (15:01)
--- NOTE | 2022-03-30 16:59 | NUR ---
Patient verbalized understanding of discharge instructions. Patient given education on home santiago care. Patient given small and large santiago bag.
== END 2022-03-30 17:41 | disposition home or self-care (01) | DRG 690 ==
LOC: ER 12:16 → 4 NORTH 14:40
PROVIDERS: ADMIT Internal Medicine; ATTEND Internal Medicine
DX: N13.6 Pyonephrosis (principal); E87.2 Acidosis; N13.8 Other obstructive and reflux uropathy; N40.1 Benign prostatic hyperplasia with lower urinary tract symptoms; N17.9 Acute kidney failure, unspecified; D72.829 Elevated white blood cell count, unspecified; D64.9 Anemia, unspecified; E11.9 Type 2 diabetes mellitus without complications; E83.42 Hypomagnesemia; K59.09 Other constipation; Z83.3 Family history of diabetes mellitus; Z88.8 Allergy status to other drugs, medicaments and biological substances
CPT/HCPCS: 36415; 51702; 71045; 74176; 80048; 80053; 81001; 82962; 83690; 83735; 84100; 84443; 84484; 85025; J0696; J3475; J7030; 97116-GP; 97535-GO; 99285-25; G0378